=== PATIENT | female | born 1935 | race Hispanic/Latino ===

== ENCOUNTER 2019-07-20 22:32 | Emergency (ER) | payer MEDICARE ==
[2019-07-20] MEDS ORDERED: ONDANSETRON ODT 4 MG TAB ONE (23:20)
[2019-07-20] MEDS ORDERED: MORPHINE SULFATE 4 MG/1ML SYG ONE (23:27)
[2019-07-20] MEDS ORDERED: LORAZEPAM 1 MG TABLET ONE (23:27)
== END 2019-07-21 01:53 | disposition left against medical advice (07) ==
LOC: EDH 22:32
DX: M26.603 Bilateral temporomandibular joint disorder, unspecified (principal); I10 Essential (primary) hypertension; E11.9 Type 2 diabetes mellitus without complications; E78.00 Pure hypercholesterolemia, unspecified; Z90.49 Acquired absence of other specified parts of digestive tract
CPT/HCPCS: 93005; 96372; 99283; J2270

== ENCOUNTER → 2022-03-11 | Outpatient (CLI) | payer OTHER, MEDICARE | END | disposition home or self-care (01) | LOC: SHCH 15:25 | PROVIDERS: ATTEND Internal Medicine Cardiovascular Disease | DX: G45.9 Transient cerebral ischemic attack, unspecified (principal) | CPT/HCPCS: 93880 ==